=== PATIENT | female | born 1970 | race African-American/Black ===

== ENCOUNTER 2017-12-17 04:07 | Emergency (ER) | payer SELFPAY ==
[~2017-12-17] VITALS: Ht 165.1 cm; Wt 97.7 kg
[2017-12-17 04:19] VITALS: BP 145/84
--- NOTE | 2017-12-17 05:14 | PHYS DOC ---
Past Medical History Past Medical History: Asthma, Bipolar, Fibromyalgia Additional Past Medical Histor: MULTIPLE PERSONALITY, CARPAL TUNNEL Past Surgical History: No Surgical History Alcohol Use: Occasionally Drug Use: Marijuana Adult General Chief Complaint Chief Complaint: GENERALIZED BODY ACHES HPI HPI Patient is a 47 year old female with history of chronic pain and fibromyalgia. Patient is not currently on any prescription medications for treatment of fibromyalgia but has been taking ibuprofen and Tylenol. This evening, the patient reports diffuse muscle aches and body pain. She states her pain is pearly controlled and she is requesting injection of IV fentanyl and lightheaded. She denies any new symptoms or complaints. No reports of fevers chills, urinary frequency urgency or dysuria. Patient does not currently have a primary care physician. She is accompanied at bedside by her significant other.[ ] Review of Systems Review of Systems Review symptoms as per history of present illness. All other systems were reviewed and found to be within normal limits, except as documented in this note. Allergies Allergies Allergies Coded Allergies Type Severity Reaction Last Updated Verified Sulfa (Sulfonamide Antibiotics) Allergy Intermediate 12/17/17 Yes aspirin Allergy Mild 12/17/17 Yes Physical Exam Physical Exam Constitutional: Well developed, well nourished, no acute distress, non-toxic appearance. [] HENT: Normocephalic, atraumatic, bilateral external ears normal, oropharynx moist, nose normal. [] Eyes: PERRLA, EOMI, conjunctiva normal, no discharge. [] Neck: Normal range of motion. [] Lungs & Thorax: Bilateral breath sounds clear to auscultation [] Extremities: No tenderness, no cyanosis, no clubbing, ROM intact, no edema. [] Neurologic: Alert and oriented X 3, normal motor function, normal sensory function, walks with steady gait[] Psychologic: Affect normal, judgement normal, mood normal. [] Current Patient Data Vital Signs Vital Signs Date Time Temp Pulse Resp B/P (MAP) Pulse Ox O2 Delivery O2 Flow Rate FiO2 12/17/17 04:19 98.5 88 16 145/84 (104) 100 Room Air 98.5 EKG EKG [] Radiology/Procedures Radiology/Procedures [] Course & Med Decision Making Course & Med Decision Making Pertinent Labs and Imaging studies reviewed. (See chart for details) [Oral nonnarcotic pain medications offered patient. Patient states she did not want to waste her time declined further evaluation and treatment in the ED. Referral list offered to follow-up with primary care physician, declined. Patient left prior to paperwork.] Dragclaudette Disclaimer Dragon Disclaimer This electronic medical record was generated, in whole or in part, using a voice recognition dictation system. Departure Departure Impression: Primary Impression: Chronic pain syndrome Disposition: HOME, SELF-CARE Condition: STABLE Patient Instructions: Chronic Pain Additional Instructions: Please take ibuprofen and Tylenol follow-up with local primary care physician or facility for treatment of chronic pain and fibromyalgia. WALLY PALACIOS DO Dec 17, 2017 05:14
== END 2017-12-17 04:59 | disposition home or self-care (01) ==
LOC: ER 04:07
DX: G89.4 Chronic pain syndrome (principal); J45.909 Unspecified asthma, uncomplicated; Z88.2 Allergy status to sulfonamides; Z88.6 Allergy status to analgesic agent
CPT/HCPCS: 99281

== ENCOUNTER 2021-02-15 10:03 | Emergency (ER) | payer SELFPAY ==
[~2021-02-15] VITALS: Ht 167.6 cm; Wt 91.3 kg
[2021-02-15 12:09] LABS: INFLUENZA A PATIENT NEGATIVE (NEGATIVE); INFLUENZA B PATIENT NEGATIVE (NEGATIVE)
[2021-02-15] MEDS ORDERED: IV NORMAL SALINE 1000ML BAG 1,000 ML IV ONE (12:45)
[2021-02-15] MEDS ORDERED: KETOROLAC 30 MG/ML VIAL. IVP ONE (12:45)
[2021-02-15] MEDS ORDERED: ONDANSETRON PF 4 MG/2 ML VIAL. IVP ONE (12:45)
--- NOTE | 2021-02-15 12:59 | PHYS DOC ---
Past Medical History Past Medical History: Asthma, Bipolar, Fibromyalgia Additional Past Medical Histor: MULTIPLE PERSONALITY, CARPAL TUNNEL Past Surgical History: Cholecystectomy, Tubal ligation Smoking Status: Former Smoker Alcohol Use: None Drug Use: Marijuana General Adult EDM: Chief Complaint: FLU SYMPTOM HPI: HPI: Patient is a 50 year old female who present to ER for evaluation of body ache, cough, joint pain, fever and chills since yesterday. Patient also complained of nausea vomiting. Patient feels like she is dying. Patient states she was vaccinated for COVID-19 already. Patient denies any abdominal pain. Review of Systems: Review of Systems: Constitutional: Positive fever and chill [] Eyes: Denies change in visual acuity. [] HENT: Positive sore throat nasal congestion Respiratory positive for cough and trouble breathing Cardiovascular: Denies chest pain or edema. [] GI: Denies abdominal pain, nausea, vomiting, bloody stools or diarrhea. [] : Denies dysuria. [] Musculoskeletal: Positive for back pain or joint pain Integument: Denies rash. [] Neurologic: Denies headache, focal weakness or sensory changes. [] Endocrine: Denies polyuria or polydipsia. [] Lymphatic: Denies swollen glands. [] Psychiatric: Denies depression or anxiety. [] Heart Score: C/O Chest Pain: N/A Risk Factors: Risk Factors: DM, Current or recent (<one month) smoker, HTN, HLP, family history of CAD, obesity. Risk Scores: Score 0 - 3: 2.5% MACE over next 6 weeks - Discharge Home Score 4 - 6: 20.3% MACE over next 6 weeks - Admit for Clinical Observation Score 7 - 10: 72.7% MACE over next 6 weeks - Early Invasive Strategies Current Medications: Current Medications Medications (Trade) Dose Ordered Sig/Daya Start Time Stop Time Status Last Admin Dose Admin Dexamethasone Sodium Phosphate (Decadron) 10 mg 1X ONCE 02/15/21 13:00 02/15/21 13:01 Ketorolac Tromethamine (Toradol 30mg Vial) 30 mg 1X ONCE 02/15/21 12:45 02/15/21 12:46 DC Ondansetron HCl (Zofran) 4 mg 1X ONCE 02/15/21 12:45 02/15/21 12:46 DC Sodium Chloride 1,000 ml @ 1,000 mls/hr 1X ONCE 02/15/21 12:45 02/15/21 13:44 Allergies: Allergies: Allergies Coded Allergies Type Severity Reaction Last Updated Verified Sulfa (Sulfonamide Antibiotics) Allergy Intermediate 12/17/17 Yes aspirin Allergy Intermediate 02/15/21 Yes oxycodone Allergy Intermediate 02/15/21 Yes Physical Exam: PE: Constitutional: Well developed, well nourished, no acute distress, non-toxic appearance. [] HENT: Normocephalic, atraumatic, bilateral external ears normal, oropharynx moist, no oral exudates, nose normal. [] Eyes: PERRLA, EOMI, conjunctiva normal, no discharge. [] Neck: Normal range of motion, no tenderness, supple, no stridor. [] Cardiovascular:Heart rate regular rhythm, no murmur [] Lungs & Thorax: Bilateral breath sounds clear to auscultation [] Abdomen: Bowel sounds normal, soft, no tenderness, no masses, no pulsatile masses. [] Skin: Warm, dry, no erythema, no rash. [] Back: No tenderness, no CVA tenderness. [] Extremities: No tenderness, no cyanosis, no clubbing, ROM intact, no edema. [] Neurologic: Alert and oriented X 3, normal motor function, normal sensory function, no focal deficits noted. [] Psychologic: Affect normal, judgement normal, mood normal. [] Current Patient Data: Labs: Laboratory Tests Test 02/15/21 11:35 Influenza Type A Antigen Negative (NEGATIVE) Influenza Type B Antigen Negative (NEGATIVE) SARS-CoV-2 Antigen (Rapid) Positive (NEGATIVE) *A Vital Signs: Vital Signs Date Time Temp Pulse Resp B/P (MAP) Pulse Ox O2 Delivery O2 Flow Rate FiO2 02/15/21 11:25 102.1 104 20 129/91 (104) 96 Room Air 102.1 EKG: EKG: [] Radiology/Procedures: Radiology/Procedures: [][facility] [address] [place] [address] IMAGING REPORT Signed PATIENT: OLIMPIA RENEE ACCOUNT: [id number] : 1970 LOCATION: ER AGE: 50 SEX: F EXAM STATUS: REG ER ORD. PHYSICIAN: KAUR KIRAN DO REASON: cough, COVID-19 INFECTION PROCEDURE: CHEST AP ONLY Exam Date: 02/15/2021 12:40 PM XR CHEST 1V Indication: Reason: cough, COVID-19 INFECTION / Spl. Instructions: / History: . FINDINGS/ IMPRESSION: Slightly prominent markings at the periphery of the lung bases bilaterally could represent atelectasis or early infiltrates. The cardiac silhouette and pulmonary vasculature are within normal limits. There is no pleural effusion or pneumothorax. Electronically signed by: Mohsen Rodriguez MD (02/15/2021 12:59 PM) [id number] DICTATED and SIGNED BY: MOHSEN RODRIGUEZ MD DATE: 02/15/21 [id number] 0 Course & Med Decision Making: Course & Med Decision Making Pertinent Labs and Imaging studies reviewed. (See chart for details) Patient is a 50-year-old female who was found to have COVID-19 infection. Her chest x-ray did not show any evident pneumonia. Patient was in no acute distress. She required no oxygen. Patient will be discharged home Dragon Disclaimer: DragGigmax Disclaimer: This electronic medical record was generated, in whole or in part, using a voice recognition dictation system. Departure Departure Impression: Primary Impression: COVID-19 virus infection Disposition: HOME / SELF CARE / HOMELESS Condition: STABLE Referrals: NO PCP (PCP) Follow up with your doctor as needed Patient Instructions: Viral Syndrome Additional Instructions: You have been tested for or diagnosed with COVID-19. It is an infection caused by a new type of coronavirus. COVID-19 will cause cold-like or mild flu symptoms in most. It can cause more severe symptoms like problems breathing in some. There is no treatment for COVID-19. The body will clear the infection over time. Self-care will help to ease discomfort. Steps to Take: Self-Care Rest as needed. Healthy habits may help you feel better. Steps include: Choose healthy foods including fruits and vegetables. Drink water throughout the day. Get plenty of sleep each night. If you smoke, try to quit. It may ease breathing. Avoid alcohol. Keep Others Healthy The virus can spread to others. Droplets are released every time you sneeze or cough. The droplets can get into the mouth, nose, or eyes of people near you and lead to infection. To lower the chances of spreading COVID-19 to others: Stay at home until your doctor has said it is safe to leave. If you tested positive this will mean staying isolated until both of the following are true: At least 7 days have passed since the start of illness. You are free of fever for at least 72 hours without the use of medicine. During this time: - Avoid public areas, events, or transportation. Do not return to work or school until your doctor has said it is safe to do so. - Call ahead if you need to go to a medical center. Let them know you may have COVID-19. It will help them guide you where to go. They may also ask you to wear a facemask when you come to the office. - If you call for emergency medical services, let them know you may have COVID- 19. While at home: - Try to avoid close contact with others. Stay about 6 feet away. - If possible, spend most of your time in a separate room from others. - Use a face mask if you will be in close contact with others such as sharing a room or vehicle. - Have someone wipe down common surfaces in the home. Use household hogshead builder every day on areas like doorknobs, counters, or sinks. - Cough or sneeze into a tissue. Throw the tissue away right after use. If a tissue is not available, cough or sneeze into your elbow. - Wash your hands often. Wash them after sneezing or coughing. Use soap and water and wash for at least 20 seconds. Alcohol based hand industrial sweeper cleaner can be used if soap and water is not available. - Do not prepare food for others. Avoid sharing personal items like forks, spoons, or toothbrushes. - Avoid close contact with pets while you are sick. There is no evidence of the virus passing to pets. This is a safety step until more is known about this virus. Isolation can be frustrating. Social interaction can help. Keep in touch with friends and family through phone and tech options. You can still interact with others in your home, just keep a safe distance of about 6 feet. Follow-up: Your doctors office will check in with you to see if there are any changes in your health. You may be asked to keep track of symptoms to share with them. They will also let you know when you are clear to be in public again. Problems to Look Out For: Contact your doctor if your recovery is not going as you expect. Get emergency care if you have problems such as: - Trouble breathing - Nonstop chest pain or pressure - Changes in awareness, confusion, or problems waking - Lips or face have bluish color - Worsening of symptoms If you think you have an emergency, call for emergency medical services right away. As taken from [facility] [employer] [facility] Azithromycin (ZITHROMAX) 250 Mg Tablet 1 PKG PO UD, #6 TAB Prov: KAUR KIRAN DO 02/15/21 Prednisone (PREDNISONE) 20 Mg Tablet 1 TAB PO DAILY for 7 Days, #7 TAB Prov: KAUR KIRAN DO 02/15/21 Albuterol Sulfate (PROAIR HFA INHALER) 8.5 Gm Hfa.aer.ad 2 PUFF IH PRN Q4-6HRS PRN for wheezing for 21 Days, #1 INHALER 0 Refills Prov: KAUR KIRAN DO 02/15/21 KAUR KIRAN DO Feb 15, 2021 12:59
[2021-02-15] MEDS ORDERED: DEXAMETHASONE SOD PHOS 4 MG/ML VIAL IVP ONE (13:00)
--- NOTE | 2021-02-15 13:02 | RAD ---
Exam Date: 02/15/2021 12:40 PM XR CHEST 1V Indication: Reason: cough, COVID-19 INFECTION / Spl. Instructions: / History: . FINDINGS/ IMPRESSION: Slightly prominent markings at the periphery of the lung bases bilaterally could represent atelectasi s or early infiltrates. The cardiac silhouette and pulmonary vasculature are within normal limits. There is no pleural effusion or pneumothorax. Electronically signed by: Harris Babin MD (02/15/2021 12:59 PM) [id number]
[2021-02-15 14:00] LABS: BASO % 1 % (0-3); EOS % 0 % (0-3); HEMATOCRIT 31.6 % (36.0-47.0); HEMOGLOBIN 10.3 g/dL (12.0-15.5); LYMPH # 0.2 x10^3/uL (1.0-4.8); LYMPH % 5 % (24-48); MEAN CORPUSCULAR HEMOGLOBIN 26 pg (25-35); MEAN CORPUSCULAR HGB CONC 33 g/dL (31-37); MEAN CORPUSCULAR VOLUME 80 fL (79-100); MONO # 0.6 x10^3/uL (0.0-1.1); MONO % 13 % (0-9); NEUT # 3.7 x10^3/uL (1.8-7.7); NEUT % 81 % (31-73); PLATELET COUNT 184 x10^3/uL (140-400); RED BLOOD COUNT 3.96 x10^6/uL (3.50-5.40); WHITE BLOOD COUNT 4.5 x10^3/uL (4.0-11.0)
[2021-02-15 14:18] LABS: CALCIUM 7.9 mg/dL (8.5-10.1); CREATININE 0.7 mg/dL (0.6-1.0); GFR 107.6; POTASSIUM 3.7 mmol/L (3.5-5.1)
[2021-02-15 14:26] LABS: ALBUMIN 3.1 g/dL (3.4-5.0); ALBUMIN/GLOBULIN RATIO 0.9 (1.0-1.7); MAGNESIUM 1.7 mg/dL (1.8-2.4); TOTAL BILIRUBIN 0.1 mg/dL (0.2-1.0); TOTAL PROTEIN 6.7 g/dL (6.4-8.2)
[2021-02-15] MEDS ORDERED: MAGNESIUM SULFATE 1GM 100 ML IV ONE (14:45)
[2021-02-15 14:51] LABS: % BANDS 4 % (0-9); % BASOS 1 % (0-3); % LYMPHS 2 % (24-48); % MONOS 11 % (0-10); % SEGS 82 % (35-66); ANISOCYTOSIS SLIGHT; PLT ESTIMATE ADEQUATE (ADEQUATE)
[2021-02-15] MEDS ORDERED: AZIT250T PO (15:03)
[2021-02-15] MEDS ORDERED: ALBU2.5V8 IH (15:03)
[2021-02-15] MEDS ORDERED: PRED20TA PO (15:03)
[2021-02-15 15:28] VITALS: BP 138/82
== END 2021-02-15 16:07 | disposition home or self-care (01) ==
LOC: ER 10:03
DX: U07.1 COVID-19 (principal); R11.2 Nausea with vomiting, unspecified; J45.909 Unspecified asthma, uncomplicated; F31.9 Bipolar disorder, unspecified; M79.7 Fibromyalgia; Z88.2 Allergy status to sulfonamides; Z88.5 Allergy status to narcotic agent; Z88.6 Allergy status to analgesic agent
CPT/HCPCS: 36415; 71045; 80053; 83735; 85007; 85025; 87426; 87804; 96361; 96365; 96375; 99285; J1100; J1885; J2405; J3475; J7030